=== PATIENT | female | born 2000 | race Caucasian/White ===

== ENCOUNTER 2022-03-12 11:21 | Outpatient (CLI) | payer OTHER | END 2022-03-12 11:22 | disposition home or self-care (01) | LOC: CSHRAD 11:21 | PROVIDERS: ATTEND Obstetrics & Gynecology | DX: T83.32XA Displacement of intrauterine contraceptive device, initial encounter (principal) | CPT/HCPCS: 74022 ==

== ENCOUNTER 2022-03-24 10:08 | Outpatient (CLI) | payer OTHER ==
[2022-03-24 11:40] LABS: Bilirubin Neg (Negative); Blood, Urine Negative (Negative); Clarity Clear (Clear); Glucose, Urine (Dipstick) Normal (Negative); Ketone, Urine Negative (Negative); Leukocyte 25 (Negative); Nitrite Negative (Negative); Protein, Urine (Dipstick) 15 mg/dl (Neg-Trace); Urobilinogen Normal mg/dL (Less than 2)
[2022-03-24 11:50] LABS: Hemoglobin 13.1 g/dL (12.0-15.5); Mean Corpuscular HGB CONC 32.5 g/dL (32.0-36.0); Mean Corpuscular Hemoglobin 28.2 pg (27.0-33.0); Mean Corpuscular Volume 86.7 fl (81.6-98.3); Mean Platelet Volume 11.7 fl (7.4-10.4); Platelet Count 164 10x3/uL (150-450); RBC Distribution Width 13.2 % (11.5-14.5); Red Blood Cell (RBC) Count 4.65 10x6/uL (3.90-5.03); White Blood Cell (WBC) Count 3.9 10x3/uL (3.5-10.5)
[2022-03-24 12:12] LABS: BHCG - Serum Negative (NEGATIVE); Pregs Control Background? CLEAR/WHITE (CLR/WHITE); Pregs Control Bar Appear? YES (CONTROL BAR)
[2022-03-24 20:30] LABS: SARS-CoV-2 PCR by NAA Not Detected (NotDetected)
== END 2022-03-24 10:09 | disposition home or self-care (01) ==
LOC: CSHLAB 10:08
PROVIDERS: ATTEND Obstetrics & Gynecology
DX: Z01.812 Encounter for preprocedural laboratory examination (principal); Z20.822 Contact with and (suspected) exposure to COVID-19; T83.32XA Displacement of intrauterine contraceptive device, initial encounter
CPT/HCPCS: 81003; 84703; 85027; U0003; U0005

== ENCOUNTER 2022-03-26 10:02 | Day surgery (SDC) | payer OTHER ==
[2022-03-21 13:55] VITALS: BMI 21.4
[2022-03-26] MEDS ORDERED: Lidocaine 1% MPF 2 ML VIAL ONE (10:41)
[2022-03-26] MEDS ORDERED: Scopolamine 1.5 mg/72 hour Patch ONE (10:56)
[2022-03-26] MEDS ORDERED: Bupivacaine PF 0.5% 30 ML VIAL ONE (10:58)
[2022-03-26] MEDS ORDERED: EPINEPHrine 1 MG/ML AMP ONE (10:58)
[2022-03-26] MEDS ORDERED: Methylene Blue 50 MG/10 ML AMPUL ONE (10:58)
[2022-03-26] MEDS ORDERED: CEFAZOLIN 1 GM VIAL ONE (11:42)
[2022-03-26] MEDS ORDERED: Midazolam HCl 2 mg/2 ml Vial ONE (11:46)
[2022-03-26] MEDS ORDERED: Ondansetron PF 4 MG/2 ML Vial ONE (11:48)
[2022-03-26] MEDS ORDERED: PROPOFOL 20 ML ONE (11:48)
[2022-03-26] MEDS ORDERED: Lidocaine 1% PF 5 ML VIAL ONE (11:48)
[2022-03-26] MEDS ORDERED: Fentanyl 100 MCG/2 ML VIAL ONE (11:48)
[2022-03-26] MEDS ORDERED: Dexamethasone 4 mg/ml Vial ONE (11:48)
[2022-03-26] MEDS ORDERED: Rocuronium Bromide 10 MG/ML (10ML VIAL) ONE (11:48)
[2022-03-26] MEDS ORDERED: Ketorolac Tromethamine 30 MG/ML VIAL ONE (11:55)
[2022-03-26] MEDS ORDERED: Glycopyrrolate 0.2 MG/ML 5 ML SYRINGE ONE (12:15)
== END 2022-03-26 14:45 | disposition home or self-care (01) ==
LOC: CSHSDC 10:02
PROVIDERS: ATTEND Obstetrics & Gynecology
PROC: 0UJD8ZZ Inspection of Uterus and Cervix, Via Natural or Artificial Opening Endoscopic (ICD-10-PCS; principal; 2022-03-26)
PROC: 0UC04ZZ Extirpation of Matter from Right Ovary, Percutaneous Endoscopic Approach (ICD-10-PCS; principal; 2022-03-26)
PROC: 0UB04ZZ Excision of Right Ovary, Percutaneous Endoscopic Approach (ICD-10-PCS; principal; 2022-03-26)
DX: T83.32XA Displacement of intrauterine contraceptive device, initial encounter (principal); N83.201 Unspecified ovarian cyst, right side; N73.6 Female pelvic peritoneal adhesions (postinfective); F17.200 Nicotine dependence, unspecified, uncomplicated; Y76.8 Miscellaneous obstetric and gynecological devices associated with adverse incidents, not elsewhere classified
CPT/HCPCS: J0171; J0690; J1100; J1885; J2250; J2405; J2704; J3010; Q9968; S0020